=== PATIENT | female | born 1970 | race African-American/Black ===

== ENCOUNTER 2017-03-30 06:33 | Inpatient (IN) | payer MEDICAID, OTHER ==
[~2017-03-30] VITALS: Ht 149.9 cm; Wt 65.8 kg
[2017-03-30] MEDS ORDERED: MORPHINE SULFATE 4 MG/ML CPJ (NOT FOR IM USE) IV STA (07:15)
[2017-03-30] MEDS ORDERED: ONDANSETRON HCL 4MG/2ML VIAL IV STA (07:15)
[2017-03-30] MEDS ORDERED: SODIUM CHLORIDE 0.9% 1,000 ML IV ONE (07:15)
[2017-03-30] MEDS ORDERED: HYDRALAZINE 20MG/ML VIAL IV ONE (07:30)
[2017-03-30 07:59] LABS: BASOPHILS % 0.4 % (0.0-2.0); EOSINOPHILS % 4.1 % (0.0-5.0); HEMATOCRIT. 35.4 % (36.0-48.0); HEMOGLOBIN. 11.2 g/dL (12.0-16.0); LYMPHOCYTES % 23.9 % (20.0-50.0); MEAN CORPUSCULAR HEMOGLOBIN 22.2 pg (28.0-32.0); MEAN CORPUSCULAR VOLUME 70.3 fL (81.0-99.0); MEAN PLATELET VOLUME 8.6 fl (7.4-10.4); MONOCYTES % 6.4 % (2.0-8.0); NEUTROPHILS % 65.2 % (40.0-76.0); PLATELET 201 x1000/uL (130-400); RED BLOOD CELL COUNT 5.03 mill/uL (4.2-5.4); RED CELL DISTRIBUTION WIDTH 15.8 % (11.6-14.6)
[2017-03-30 08:08] LABS: HCG SCREEN NEGATIVE; INR 1.2; PARTIAL THROMBOPLASTIN TIME 25.4 sec (23.4-31.0); PROTHROMBIN TIME 12.4 sec (9.4-11.6)
[2017-03-30 08:15] LABS: CARBON DIOXIDE 27 mEq/L (21-32); CHLORIDE 107 mEq/L (98-107)
[2017-03-30] MEDS ORDERED: ASPIRIN 81MG TABLET PO STA (08:18)
[2017-03-30] MEDS ORDERED: NITROGLYCERIN OINT 1GM/INCH UDPKT TD STA (08:18)
[2017-03-30 08:22] LABS: GLUCOSE URINE NEGATIVE (NEGATIVE); KETONES URINE TRACE (NEGATIVE); LEUKOCYTE ESTERASE URINE 1+ (NEGATIVE); NITRITE URINE NEGATIVE (NEGATIVE); OCCULT BLOOD URINE 3+ (NEGATIVE); PROTEIN URINE 2+ (NEGATIVE); SPECIFIC GRAVITY URINE 1.017 (1.005-1.030); UROBILINOGEN URINE 0.2 E.U./dL (0.2-1.0)
[2017-03-30 08:25] LABS: CLARITY URINE CLOUDY (CLEAR); COLOR URINE BLOODY (YELLOW)
[2017-03-30] MEDS ORDERED: CEFTRIAXONE 1 G PREMIX 50 ML IV ONE (08:30)
[2017-03-30] MEDS: NITROGLYCERIN 0.4MG TABLET SL SL PRN ×2 (08:32→08:37)
[2017-03-30] MEDS ORDERED: ONDANSETRON HCL 4MG/2ML VIAL IV ONE (08:45)
[2017-03-30 09:11] LABS: *AMPHETAMINES SCREEN URINE NEGATIVE (NEGATIVE); *BARBITURATES SCREEN URINE NEGATIVE (NEGATIVE); *BENZODIAZEPINES SCREEN URINE NEGATIVE (NEGATIVE); *COCAINE SCREEN URINE NEGATIVE (NEGATIVE); CANNABINOID URINE SCREEN NEGATIVE (NEGATIVE); METHADONE URINE SCREEN NEGATIVE (NEGATIVE); OPIATES URINE SCREEN NEGATIVE (NEGATIVE); PHENCYCLIDINE URINE SCREEN NEGATIVE (NEGATIVE)
[2017-03-30 11:40] VITALS: BP 185/91
[2017-03-30] MEDS ORDERED: IPRATROPIUM/ALBUTEROL 0.5-3(2.5)MG/3ML NEB INH PRN (11:45)
[2017-03-30] MEDS ORDERED: DIPHENHYDRAMINE 50MG/ML VIAL IV PRN (11:45)
[2017-03-30] MEDS ORDERED: LORAZEPAM 2MG/ML CPJ IV PRN (11:45)
[2017-03-30] MEDS ORDERED: NA PHOS,M-B/NA PHOS,DI-BA ENEMA 118ML PR PRN (11:45)
[2017-03-30] MEDS ORDERED: ONDANSETRON HCL 4MG/2ML VIAL IV PRN (11:45)
[2017-03-30] MEDS ORDERED: DOCUSATE SODIUM 100MG CAPSULE PO PRN (11:45)
[2017-03-30] MEDS ORDERED: ACETAMINOPHEN 325MG TABLET PO PRN (11:45)
[2017-03-30] MEDS ORDERED: MAGNESIUM/ALUMINUM HYDROXIDE/SIMETHICONE 30ML UDC PO PRN (11:45)
[2017-03-30] MEDS ORDERED: NITROGLYCERIN 0.4MG TABLET SL SL PRN (11:45)
[2017-03-30] MEDS ORDERED: GUAIFENESIN 200MG/10ML SUGAR FREE UDC PO PRN (11:45)
[2017-03-30 12:00] VITALS: BP 185/91
[2017-03-30] MEDS: KETOROLAC 15MG/ML VIAL IV PRN ×2 (12:28→18:31)
[2017-03-30] MEDS: ENOXAPARIN 40MG/0.4ML SYR SUBCUT SCH (12:30)
[2017-03-30] MEDS: LEVOFLOXACIN 500MG PREMIX 100 ML IV SCH (13:28)
[2017-03-30] MEDS ORDERED: CLON0.1T PO (13:56)
[2017-03-30] MEDS ORDERED: HYDR-4133 PO (13:57)
[2017-03-30] MEDS ORDERED: ASPI-986 PO (13:57)
[2017-03-30 16:05] LABS: CREATINE KINASE MB FRACTION 1.9 ng/mL (0.5-3.6); TROPONIN I 0.03 ng/mL (0.00-0.04)
[2017-03-30] MEDS: CLONIDINE 0.1MG TABLET PO PRN ×2 (17:01→23:48)
[2017-03-30] MEDS: SODIUM CHLORIDE 0.9% 1,000 ML IV SCH (17:03)
[2017-03-30 18:35] VITALS: BP 201/107
[2017-03-30 20:00] VITALS: BP 187/96
[2017-03-30] MEDS: TAMSULOSIN HCL 0.4MG SR CAPSULE PO SCH (20:35)
[2017-03-30] MEDS: FAMOTIDINE 20MG/2ML VIAL IV SCH (20:35)
[2017-03-30] MEDS: LISINOPRIL 20MG TABLET PO SCH (20:36)
[2017-03-30] MEDS: METOPROLOL TARTRATE 25MG TABLET PO SCH (20:39)
[2017-03-30] MEDS ORDERED: ZOLPIDEM TARTRATE 5MG TABLET PO PRN (21:00)
[2017-03-31] VITALS: BP 180/87
[2017-03-31 01:50] LABS: CREATINE KINASE MB FRACTION 1.4 ng/mL (0.5-3.6); TROPONIN I 0.05 ng/mL (0.00-0.04)
[2017-03-31 04:45] VITALS: BP 201/89
[2017-03-31] MEDS: CLONIDINE 0.1MG TABLET PO PRN ×2 (05:44→13:09)
[2017-03-31] MEDS: SODIUM CHLORIDE 0.9% 1,000 ML IV SCH (05:44)
[2017-03-31 05:59] VITALS: BP 201/89
[2017-03-31] MEDS: KETOROLAC 15MG/ML VIAL IV PRN (05:59)
[2017-03-31] MEDS: ENOXAPARIN 40MG/0.4ML SYR SUBCUT SCH ×2 (08:33→08:42)
[2017-03-31] MEDS: FAMOTIDINE 20MG/2ML VIAL IV SCH (08:35)
[2017-03-31] MEDS: TAMSULOSIN HCL 0.4MG SR CAPSULE PO SCH (08:38)
[2017-03-31] MEDS: LISINOPRIL 20MG TABLET PO SCH (08:39)
[2017-03-31] MEDS: METOPROLOL TARTRATE 25MG TABLET PO SCH (08:40)
[2017-03-31] MEDS ORDERED: ASPIRIN 325MG EC TABLET PO SCH (09:00)
[2017-03-31] MEDS ORDERED: AMLODIPINE 10MG TABLET PO SCH (09:00)
[2017-03-31] MEDS: LEVOFLOXACIN 500MG PREMIX 100 ML IV SCH (13:10)
== END 2017-03-31 14:25 | disposition home or self-care (01) | DRG 243 ==
LOC: ER 06:33 → EDBEDREQ 09:25 → ENRESERV 09:58 → 6WST 12:09
PROVIDERS: ADMIT Internal Medicine; ATTEND Internal Medicine
DX: K21.9 Gastro-esophageal reflux disease without esophagitis (principal); E44.1 Mild protein-calorie malnutrition; I10 Essential (primary) hypertension; N39.0 Urinary tract infection, site not specified; N28.89 Other specified disorders of kidney and ureter; N20.0 Calculus of kidney; E88.09 Other disorders of plasma-protein metabolism, not elsewhere classified; Z87.442 Personal history of urinary calculi; Z68.29 Body mass index [BMI] 29.0-29.9, adult
CPT/HCPCS: 36415; 71010; 74176; 80053; 80061; 80305; 81001; 82550; 82553; 83036; 83690; 83735; 84484; 84703; 85025; 85610; 85730; 87086; 93005; 93970; 96361; 96365; 96375; 96376; 99291; C1893; J0360; J0696; J1650; J1885; J1956; J2270; J2405; J3490; J7030; J7050